=== PATIENT | female | born 1970 | race Caucasian/White ===

== ENCOUNTER → 2020-04-01 | Outpatient (CLI) | payer BC ==
--- NOTE | ~2020-04-01 | CON ---
[address] [address] CONSULTATION Name: CHIRAG VOSS Room: [facility]#: [id number] Admission: 04/01/20 Attend Phys: Jonathan Rider MD Discharge: Date of : 70 Report #: [id number] THIS REPORT FOR: //name// cc: Consuelo Moreno Kathleen M. DO ~ THIS REPORT FOR: //name// CC: Jonathan Moreno DATE OF SERVICE: 04/01/2020 RADIATION ONCOLOGY CONSULT NOTE REFERRING PHYSICIANS: Anny Lei DO; Elina Dinero MD; Savita Pham MD; Consuelo Moreno DO PRIMARY SITE AND HISTOPATHOLOGY: The patient has estrogen receptor positive, progesterone receptor negative T2 Nx M0 right breast cancer. HISTORY OF PRESENT ILLNESS: The patient indicated that she had a routine screening mammogram on 01/04/2020 and that recommended additional imaging, so she had on 01/27/2020, a right digital mammogram in [facility], which revealed an irregular spiculated mass involving the 12 o'clock position of the right breast that measured 2.6 cm x 2.4 x 1.9 cm and no abnormal-appearing lymph nodes were identified. She had an ultrasound-guided needle biopsy of this area on 03/06/2020 and that revealed an invasive carcinoma of the right breast, which was 73.9% estrogen receptor positive, progesterone receptor negative, HER2/jelly negative and Ki-67 was 24.8%. The patient had a breast MRI on 03/17/2020 which revealed a mass that measured 3.4 x 4 cm x 3.5 cm. There is no abnormal axillary lymphadenopathy identified and she presents to discuss treatment options. PAST MEDICAL HISTORY AND PAST SURGICAL HISTORY: The patient had a hysterectomy in 05/2014 though she indicated that the ovaries were left intact and she also had diskectomy in 09/2017 at [facility]. MEDICATIONS: Trazodone at night, Xanax as needed. ALLERGIES: No known drug allergies. OBSTETRICS/GYNECOLOGY: Menarche at , menopause in 2013. She is 0, para 0. FAMILY HISTORY: Father had cancer of the throat. She said her sister did have "genetic testing" that was negative. [place] [address] CONSULTATION Name: SHANIKACHIRAG Room: [facility]#: [id number] Admission: 04/01/20 Attend Phys: Jonathan Rider MD Discharge: Date of : 70 Report #: [id number] breast cancer. Paternal grandfather had lung cancer and maternal uncle had some type of cancer which may have been caused by agent orange. 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 She has an alcohol containing drinks 1-2 times per week. Cigarettes, she does not smoke cigarettes. REVIEW OF SYSTEMS: GENERAL: The patient denied having any fevers or chills. SKIN: The patient denied having color changes or itching. LYMPH NODES: The patient denied having enlarged or painful glands in the neck or underarms. ENDOCRINE: The patient denied having any hot or cold intolerance. HEMATOLOGY AND IMMUNOLOGY: The patient denied having any anemia or recent bleeding. MUSCULOSKELETAL: The patient does have back pain and painful swollen joints. HEAD AND NECK: The patient denied having any headaches, migraines. RESPIRATORY: The patient denied having shortness of breath. CARDIOVASCULAR: The patient denied having any palpitations. GASTROINTESTINAL: The patient denied having nausea or vomiting. NEUROLOGIC: The patient denied having any focal weakness. PHYSICAL EXAMINATION: VITAL SIGNS: Height is 5 feet 4 inches, weight 194.8 pounds, blood pressure 132/83, oxygen saturation was 98%, respirations were 16, pulse 57. GENERAL: The patient was seen with my nurse present, Светлана Chavez. The patient was alert and oriented, no acute distress. LYMPH NOES: She had no palpable cervical or supraclavicular or axillary lymphadenopathy. EYES: Pupils are equal, round, react to light and accommodation. Extraocular movement was intact. HENT: Mouth had no visible lesions. HEART: Had a regular rate and rhythm without murmur. LUNGS: Clear to auscultation. ABDOMEN: Not tender. Spleen was not palpable. Liver was at the costal margin. EXTREMITIES: Had no clubbing, cyanosis or edema. BREASTS: Right breast did have a palpable mass measuring about 3.7 x 3.5 cm. The other breast did not have a palpable mass. ASSESSMENT AND PLAN: The patient has an estrogen receptor positive T2 Nx M0 right breast cancer. The patient was told that her local treatment options include mastectomy versus breast conservation therapy. This is based on NSABP B-06. The patient with early breast cancers were randomized between total mastectomy versus lumpectomy alone versus lumpectomy and radiation therapy. At 20 years followup, there is no significant difference in overall survival between the 3 groups. The addition of radiation therapy to lumpectomy reduced [facility] [address] [place] [address] CONSULTATION Name: CHIRAG VOSS Room: [facility]#: [id number] Admission: 04/01/20 Attend Phys: Jonathan Rider MD Discharge: Date of : 70 Report #: [id number] the local failure rate from 39% to 14%. She was told if she pursues breast conservation therapy then she will be given radiation therapy as part of breast conservation therapy. On the other hand, she was told if she pursues mastectomy, then she would only be offered radiation therapy as she had high risk features which could include breast cancers that are greater than 5 cm, or lymph nodes involved with breast cancer or positive margins. She indicated that she had genetic testing drawn on 03/30/2020. She was going to wait to decide what type of local treatment to pursue after the she has a genetic testing results and then she will see Dr. Lei and I asked the patient to follow up with me in about 5-6 weeks to review the pathology from the surgery, which I presume will be already completed by them. Thank you very much for this consultation. By: [id number] Rider MD /nt
== END ==
LOC: M.RTH 10:15
PROVIDERS: ATTEND Radiology Radiation Oncology
DX: N63.10 Unspecified lump in the right breast, unspecified quadrant (principal); Z85.3 Personal history of malignant neoplasm of breast

== ENCOUNTER → 2020-05-20 | Outpatient (CLI) | payer BC ==
--- NOTE | ~2020-05-20 | ONC ---
[address] [address] RADIATION ONCOLOGY NOTE Name: CHIRAG VOSS Room: [facility]#: [id number] Admission: 05/20/20 Attend Phys: Jonathan Rider MD Discharge: Date of : 70 Report #: [id number] THIS REPORT FOR: //name// CC: Jonathan Moreno DATE OF SERVICE: 05/20/2020 RADIATION ONCOLOGY FOLLOWUP NOTE REFERRING PHYSICIANS: Dr. Consuelo Dasilva Meng; Dr. Anny Lei; Elina Dinero MD; and Savita Pham MD and Dr. Looney from Plastic Surgery. [facility] phone is [phone]. PRIMARY SITE AND HISTOPATHOLOGY: The patient underwent a prophylactic left mastectomy and also a right mastectomy on 04/25/2020, the prophylactic left mastectomy had no evidence of malignancy. The right total mastectomy had an invasive cancer, which was a histologic grade 2 and the cancer measured 2.4 cm. The margins were uninvolved by invasive cancer, and uninvolved by ductal carcinoma in situ. One out of 4 lymph nodes were involved with metastatic cancer. The size of the metastatic deposit was 1 cm. Extranodal extension was not noted. Originally the tumor was 73.9% estrogen receptor positive, progesterone receptor negative, HER2/jelly negative and Ki-67 was 24.8%. INTERVAL NOTE: The patient saw her medical oncologist, Dr. Elina Dinero and she saw Dr. Elina Dinero on 05/11/[address] Dinero indicated that an Oncotype was run and had a recurrence score of 27, so her chance of distant recurrence at 9 years was 21% and so Dr. Dinero was going to proceed with treating with Adriamycin, Cytoxan in a dose dense fashion followed by Taxol. She also indicated that she had a genetic testing, which was negative, so the patient presented to basically review the pathology. 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 Cigarettes, she does not smoke cigarettes. REVIEW OF SYSTEMS: MUSCULOSKELETAL: Range of motion was normal. RESPIRATORY: She was not short of breath. PHYSICAL EXAMINATION: VITAL SIGNS: The patient weighed 190.8 pounds, blood pressure is 127/85, pulse 72, temperature 98.3 degrees Fahrenheit, respirations are 16. HEART: Had a regular rate and rhythm without murmur. LUNGS: Clear to auscultation. Her medications are trazodone at night [place] [address] RADIATION ONCOLOGY NOTE Name: CHIRAG VOSS Room: [facility]#: [id number] Admission: 05/20/20 Attend Phys: Jonathan Rider MD Discharge: Date of : 70 Report #: [id number] ASSESSMENT AND PLAN: 1. History of right breast cancer. The patient saw her medical oncologist, Dr. Dinero who will be proceeding with chemotherapy. The patient was then offered radiation therapy after the chemotherapy is complete. This is based on studies such as the one in the article with the title "Is the benefit of post-mastectomy, radiation limited to patients with 4 or more positive nodes." It is recommended International consensus reports, a subgroup analysis of the DBCG 82b and 82c randomized trials and in those trials patients received systemic therapy after mastectomy and randomized to radiation therapy versus no further radiation therapy. Then in the patient's with 1-3 positive lymph nodes, the addition of radiation therapy reduced the local recurrence rate from 27%-4% and increased the 15-year survival rate from 48% to 57%. So the risks, benefits, logistics of radiation therapy were explained to the patient in detail and she was given a copy of the consent form and she was asked to follow up with me in about 3 months, which should be towards the end of her chemotherapy, so that she can be scheduled for radiation therapy after the chemotherapy is complete. 2. Breast reconstruction -- the patient indicated that she is going to see the plastic surgeon, Dr. Looney later in May and so I just told her to make sure that to let Dr. Looney knows that she will be receiving radiation therapy. 3. Insomnia -- The patient takes trazodone that is managed by referring physicians. 4. Anxiety -- The patient takes Xanax as needed. Thank you for allowing me to participate in the care of this patient. By: [id number] Rider MD /erika
== END ==
LOC: M.RTH 11:15
PROVIDERS: ATTEND Radiology Radiation Oncology
DX: Z08 Encounter for follow-up examination after completed treatment for malignant neoplasm (principal); Z92.3 Personal history of irradiation; Z79.899 Other long term (current) drug therapy; Z85.3 Personal history of malignant neoplasm of breast

== ENCOUNTER → 2020-08-26 | Outpatient (CLI) | payer BC ==
--- NOTE | ~2020-08-26 | ONC ---
[place] [address] RADIATION ONCOLOGY NOTE Name: CHIRAG VOSS Therese Room: [facility].#: [id number] Admission: 08/26/20 Attend Phys: Jonathan Rider MD Discharge: Date of : 70 Report #: [id number] THIS REPORT FOR: cc: Consuelo Moreno Kathleen M. DO ~ Jonathan Rider MD DATE OF SERVICE: 08/26/2020 FOLLOWUP NOTE REFERRING PHYSICIANS: Include Elina Dinero MD; Consuelo Moreno DO; Anny Lei DO; Savita Pham MD; Shandra Looney MD and Nilesh Sykes MD [facility] phone is [phone]. PRIMARY SITE AND HISTOPATHOLOGY: The patient underwent a prophylactic left mastectomy and also a right mastectomy on 04/25/2020. The prophylactic left mastectomy had no evidence of malignancy. The right total mastectomy had an invasive breast cancer, which was histologic grade 2 and the cancer measured about 2.4 cm. The margins were not involved by invasive cancer and uninvolved by ductal carcinoma in situ. One out of four lymph nodes were involved with metastatic cancer. Size of the metastatic deposit was about 1 cm. Extranodal extension was not noted. Originally, the tumor was 73.9% estrogen receptor positive, progesterone receptor negative, and HER2/jelly negative and Ki-67 was 24.8%. INTERVAL NOTE: The patient has been receiving chemotherapy under the direction of her medical oncologist, Dr. Dinero at [facility] and she is presently receiving Taxol and the patient indicated that her chemotherapy will be completed approximately around 09/07/2020. Prior to that, she was applying that she received Adriamycin and Cytoxan in a dose dense fashion. 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 Cigarettes, she does not smoke cigarettes. REVIEW OF SYSTEMS: MUSCULOSKELETAL: Range of motion was normal in her upper extremities. RESPIRATORY: She was not short of breath. PHYSICAL EXAMINATION: VITAL SIGNS: The patient weighed 198 pounds on 08/26/2020 and 190.8 pounds on 05/20/2020. On 08/26/2020, blood pressure was 112/75, pulse was 105, respirations 20, oxygen saturation was 98%, temperature was 98.7 degrees Fahrenheit. The patient was seen with my nurse, Светлана Chavez, present. HEART: Had a regular rate and rhythm without murmur. LUNGS: [place] [address] RADIATION ONCOLOGY NOTE Name: CHIRAG VOSS Room: [facility]#: [id number] Admission: 08/26/20 Attend Phys: Jonathan Rider MD Discharge: Date of : 70 Report #: [id number] BREASTS: Right chest wall was well healed with no suspicious palpable masses and the left chest wall was well healed with no suspicious palpable masses. LYMPH NODES: She had no palpable cervical, supraclavicular or axillary lymphadenopathy. ABDOMEN: Nontender. Spleen was not palpable. Liver was at the costal margin. Her performance status was about 90%. MEDICATION LIST: The patient takes aspirin, she takes trazodone, she takes Xanax as needed, and she takes meloxicam as needed and Zofran as needed. ASSESSMENT AND PLAN: 1. History of right breast cancer. The patient was offered radiation therapy to the chest wall and regional lymph nodes and she had 1/4 lymph nodes involved with breast cancer to help reduce the chance of local recurrence. The risks, benefits, logistics of radiation therapy to the right chest wall and regional lymph nodes were discussed with the patient in detail and she gave her witnessed, informed consent to proceed with radiation therapy. The patient is interested in the hyperfractionation protocol. I went ahead and emailed our protocol coordinator to let her know that, so she could consent her for that protocol. 2. Breast reconstruction. The patient indicated that she will be following up with the plastic surgeon, Dr. Looney with regards to reconstruction. 3. Pain control. She takes meloxicam as needed for pain control. 4. Insomnia. She takes trazodone for insomnia. 5. Anxiety. She takes Xanax as needed for anxiety. Total time spent with documenting and seeing the patient is approximately 28 minutes. Thank you for allowing me to participate in the care of this patient. By: [id number] Rider MD /erika
== END ==
LOC: M.RTH 09:45
PROVIDERS: ATTEND Radiology Radiation Oncology
DX: Z85.3 Personal history of malignant neoplasm of breast (principal)